=== PATIENT | female | born 1980 | race Caucasian/White ===

== ENCOUNTER 2016-11-27 19:43 | Emergency (ER) | payer OTHER ==
--- NOTE | 2016-11-27 20:48 | ED ORDER SUMMARY ---
..... Patient: KEL HAGAN OrderSheet [facility] VisitID: [id number] [address] [place] [address] 36y, F Registration Date/Time: 11/27/2016 ORDER SHEET Weight: 81.6 kg (stated) Allergies: No Known Drug Allergy GENERAL ORDERS: CBC w Diff Urgent (20:03 11/27/2016 HBivens A.R.N.P.) (Ack 20:06 SRedmond) (20:14 EInderbitzen R.N.) CMP Urgent (20:03 11/27/2016 HBivens A.R.N.P.) (Ack 20:06 SRedmond) (20:14 EInderbitzen R.N.) D-Dimer Urgent (20:03 11/27/2016 HBivens A.R.N.P.) (Ack 20:06 SRedmond) (20:14 EInderbitzen R.N.) MEDICATION ORDERS: IV FLUIDS: IV Saline Lock (20:03 11/27/2016 HBivens A.R.N.P.) (20:14 EInderbitzen R.N.) ORDER SHEET NOTES: [Electronically signed by Hemalatha Sinclair R.N. (20:58 11/27/2016)] [Electronically signed by Kiara Glez A.R.N.P. (22:58 11/27/2016)] [Electronically locked/signed by Heamlatha Sinclair R.N. (20:58 11/27/2016)]
--- NOTE | 2016-11-27 20:48 | ED ORDER SUMMARY ---
..... Patient: KEL HAGAN OrderSheet [facility] VisitID: [id number] [address] [place] [address] 36y, F Registration Date/Time: 11/27/2016 ORDER SHEET Weight: 81.6 kg (stated) Allergies: No Known Drug Allergy GENERAL ORDERS: CBC w Diff Urgent (20:03 11/27/2016 HBivens A.R.N.P.) (Ack 20:06 SRedmond) (20:14 EInderbitzen R.N.) CMP Urgent (20:03 11/27/2016 HBivens A.R.N.P.) (Ack 20:06 SRedmond) (20:14 EInderbitzen R.N.) D-Dimer Urgent (20:03 11/27/2016 HBivens A.R.N.P.) (Ack 20:06 SRedmond) (20:14 EInderbitzen R.N.) MEDICATION ORDERS: IV FLUIDS: IV Saline Lock (20:03 11/27/2016 HBivens A.R.N.P.) (20:14 EInderbitzen R.N.) ORDER SHEET NOTES: [Electronically signed by Hemalatha Sinclair R.N. (20:58 11/27/2016)] [Electronically signed by Kiara Glez A.R.N.P. (22:58 11/27/2016)] [Electronically locked/signed by Hemalatha Sinclair R.N. (20:58 11/27/2016)]
--- NOTE | 2016-11-27 20:48 | ED NURSING NOTES ---
Clinical Report - Nurses [facility] [address] [place] [address] 11/27/2016 19:43 Patient: KEL HAGAN TRIAGE Triage time 19:48 Nov 27 2016. Acuity: LEVEL 4. Chief Complaint: (swelling in legs). 19:48 11/27/16. SEPSIS SCREEN: Sepsis Screen. Negative (no infection suspected/documented). CRISTINA COMA SCORE: [place] Coma Scale: 15- eyes open spontaneously (4); best verbal response- oriented x 4 (5); best motor response- obeys commands (6). --19:55 Hemalatha Sinclair R.N. 19:48 11/27/16. BP: 98/63. HR: 100. RR: 18. O2 saturation: 100%. Temp: 98.2 F. Pain level now 310. --19:55 Hemalatha Sinclair R.N. Weight: 81.6 kg stated. Height/Length: 67 inches Per Patient. BMI: 28.2. --19:47 Hemalatha Sinclair R.N. Medications ALPRAZolam Oral. Methadone HCl Oral. PROzac Oral. --19:49 Hemalatha Sinclair R.N. Medication/allergy information source: the patient. --19:55 Hemalatha Sinclair R.N. Allergies No Known Drug Allergy. --19:49 Hemalatha Sinclair R.N. History Arrived by private vehicle. Historian: patient. Accompanied by family. This started just prior to arrival. Onset. (90 minutes ago). ( acute onset swelling to both legs. no long car trips or airplane trips, nothing out of the norm. states skin is painful and itchy.). No cough or difficulty breathing. 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 PAST MEDICAL HX: Last normal menstrual period now. Has not received seasonal influenza immunization. SOCIAL HX: Smoker- current status unknown (vapes). No alcohol use or drug use. No infectious disease exposure. ABUSE ASSESSMENT: No report of abuse. SELF HARM ASSESSMENT: A self harm assessment was performed. The patient answered "no" to the question "Have you recently felt down, depressed, or hopeless?", "Have you noticed less interest or pleasure in doing things?", "Do you have thoughts of harming or killing yourself?", "Are you here because you tried to hurt yourself?", "Have you ever tried to hurt yourself before today?", "Have you recently had thoughts about harming or killing others?" and "Do you have any dangerous items in your possession?". NUTRITIONAL RISK ASSESSMENT: The nutritional risk assessment revealed no deficiencies. FUNCTIONAL ASSESSMENT: Functional assessment: no impairments noted. LEARNING NEEDS ASSESSMENT: The learning needs assessment revealed no barriers. SKIN INTEGRITY ASSESSMENT: Skin integrity risk assessment completed. No skin integrity risk identified. --19:55 Hemalatha Sinclair R.N. PROBLEMS: Former iv drug user. Abscess Check. Abscess. Laceration. Tendon Laceration. Tetanus Status. Anxiety Reaction. --19:49 Hemalatha Sinclair R.N. ADDITIONAL SURGERIES: Hand. --19:49 Hemalatha Sinclair R.N. Interventions ID band on patient. --19:55 Hemalatha Sinclair R.N. PHYSICAL ASSESSMENT 19:56 11/27/16. Ambulatory to room. GENERAL / NEURO / PSYCH: Alert. Oriented X 4. HEENT: Pupils equal, round and reactive to light. No facial asymmetry noted. Mucous membranes are pink. RESPIRATORY: Breath sounds within normal limits. CVS: Pulses within normal limits. GI / : Abdomen nontender. EXTREMITIES: Bilateral 3+ non-pitting edema of the lower extremities involving both lower legs. SKIN: Skin intact. Skin is warm and dry. Normal skin turgor. --19:56 Hemalatha Sinclair R.N. NURSING PROGRESS NOTES 19:55 11/27/16. The initial plan of care for this patient includes an assessment with efforts to address the presence of pain. This plan of care was discussed with the patient. Patient gowned. Reassurance given. Patient identifiers checked. Call light placed in reach. Side rails up x 1. Bed placed in lowest position. Brakes of bed on. Patient ready for evaluation. --19:55 Hemalatha Sinclair R.N. 20:10 11/27/2016 Site #1 started via IV in the right antecubital space with an 20g angiocath, with aseptic technique and good blood return; one attempt. Blood drawn: rainbow set. Labeled in the presence of the patient and sent to the lab. Saline lock flushed with 10 mL saline. --20:14 Hemalatha Sinclair R.N. DISPOSITION / DISCHARGE 20:51 11/27/2016 Site #1 removed upon discharge. Pressure dressing and bandage applied. --20:51 Hemalatha Sinclair R.N. 20:51 11/27/16. Condition at departure: improved and stable. The goals identified in the patient's plan of care were met. ( GCS 15). FALL RISK ASSESSMENT: Fall risk assessment completed. No fall risk identified. --20:51 Hemalatha Sinclair R.N. 20:51 11/27/16. BP: 111/72. HR: 90. RR: 18. O2 saturation: 97%. Temp: 98.0 F. Pain level now 2/10. --20:51 Hemalatha Sinclair R.N. 20:58 11/27/16. Departure time: 20:58 Nov 27 2016. No learning barriers present. Discharge instructions provided and reviewed with the patient. Patient verbalized understanding. Written instructions provided in [place]. The patient was discharged home and accompanied by family. She left the Emergency Department ambulatory and via private vehicle. Family member driving. --20:58 Hemalatha Sinclair R.N. Locked/Released at 11/27/2016 20:58 by Hemalatha Sinclair R.N.
--- NOTE | 2016-11-27 20:48 | ED NURSING NOTES ---
Clinical Report - Nurses [facility] [address] [place] [address] 11/27/2016 19:43 Patient: KEL HAGAN TRIAGE Triage time 19:48 Nov 27 2016. Acuity: LEVEL 4. Chief Complaint: (swelling in legs). 19:48 11/27/16. SEPSIS SCREEN: Sepsis Screen. Negative (no infection suspected/documented). CRISTINA COMA SCORE: [place] Coma Scale: 15- eyes open spontaneously (4); best verbal response- oriented x 4 (5); best motor response- obeys commands (6). --19:55 Hemalatha Sinclair R.N. 19:48 11/27/16. BP: 98/63. HR: 100. RR: 18. O2 saturation: 100%. Temp: 98.2 F. Pain level now 310. --19:55 Hemalatha Sinclair R.N. Weight: 81.6 kg stated. Height/Length: 67 inches Per Patient. BMI: 28.2. --19:47 Hemalatha Sicnlair R.N. Medications ALPRAZolam Oral. Methadone HCl Oral. PROzac Oral. --19:49 Hemalatha Sinclair R.N. Medication/allergy information source: the patient. --19:55 Hemalatha Sinclair R.N. Allergies No Known Drug Allergy. --19:49 Hemalatha Sinclair R.N. History Arrived by private vehicle. Historian: patient. Accompanied by family. This started just prior to arrival. Onset. (90 minutes ago). ( acute onset swelling to both legs. no long car trips or airplane trips, nothing out of the norm. states skin is painful and itchy.). No cough or difficulty breathing. 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 PAST MEDICAL HX: Last normal menstrual period now. Has not received seasonal influenza immunization. SOCIAL HX: Smoker- current status unknown (vapes). No alcohol use or drug use. No infectious disease exposure. ABUSE ASSESSMENT: No report of abuse. SELF HARM ASSESSMENT: A self harm assessment was performed. The patient answered "no" to the question "Have you recently felt down, depressed, or hopeless?", "Have you noticed less interest or pleasure in doing things?", "Do you have thoughts of harming or killing yourself?", "Are you here because you tried to hurt yourself?", "Have you ever tried to hurt yourself before today?", "Have you recently had thoughts about harming or killing others?" and "Do you have any dangerous items in your possession?". NUTRITIONAL RISK ASSESSMENT: The nutritional risk assessment revealed no deficiencies. FUNCTIONAL ASSESSMENT: Functional assessment: no impairments noted. LEARNING NEEDS ASSESSMENT: The learning needs assessment revealed no barriers. SKIN INTEGRITY ASSESSMENT: Skin integrity risk assessment completed. No skin integrity risk identified. --19:55 Hemalatha Sinclair R.N. PROBLEMS: Former iv drug user. Abscess Check. Abscess. Laceration. Tendon Laceration. Tetanus Status. Anxiety Reaction. --19:49 Hemalatha Sinclair R.N. ADDITIONAL SURGERIES: Hand. --19:49 Hemalatha Sinclair R.N. Interventions ID band on patient. --19:55 Hemalatha Sinclair R.N. PHYSICAL ASSESSMENT 19:56 11/27/16. Ambulatory to room. GENERAL / NEURO / PSYCH: Alert. Oriented X 4. HEENT: Pupils equal, round and reactive to light. No facial asymmetry noted. Mucous membranes are pink. RESPIRATORY: Breath sounds within normal limits. CVS: Pulses within normal limits. GI / : Abdomen nontender. EXTREMITIES: Bilateral 3+ non-pitting edema of the lower extremities involving both lower legs. SKIN: Skin intact. Skin is warm and dry. Normal skin turgor. --19:56 Hemalatha Sinclair R.N. NURSING PROGRESS NOTES 19:55 11/27/16. The initial plan of care for this patient includes an assessment with efforts to address the presence of pain. This plan of care was discussed with the patient. Patient gowned. Reassurance given. Patient identifiers checked. Call light placed in reach. Side rails up x 1. Bed placed in lowest position. Brakes of bed on. Patient ready for evaluation. --19:55 Hemalatha Sinclair R.N. 20:10 11/27/2016 Site #1 started via IV in the right antecubital space with an 20g angiocath, with aseptic technique and good blood return; one attempt. Blood drawn: rainbow set. Labeled in the presence of the patient and sent to the lab. Saline lock flushed with 10 mL saline. --20:14 Hemalatha Sinclair R.N. DISPOSITION / DISCHARGE 20:51 11/27/2016 Site #1 removed upon discharge. Pressure dressing and bandage applied. --20:51 Hemalatha Sinclair R.N. 20:51 11/27/16. Condition at departure: improved and stable. The goals identified in the patient's plan of care were met. ( GCS 15). FALL RISK ASSESSMENT: Fall risk assessment completed. No fall risk identified. --20:51 Hemalatha Sinclair R.N. 20:51 11/27/16. BP: 111/72. HR: 90. RR: 18. O2 saturation: 97%. Temp: 98.0 F. Pain level now 2/10. --20:51 Hemalatha Sinclair R.N. 20:58 11/27/16. Departure time: 20:58 Nov 27 2016. No learning barriers present. Discharge instructions provided and reviewed with the patient. Patient verbalized understanding. Written instructions provided in [place]. The patient was discharged home and accompanied by family. She left the Emergency Department ambulatory and via private vehicle. Family member driving. --20:58 Hemalatha Sinclair R.N. Locked/Released at 11/27/2016 20:58 by Hemalatha Sinclair R.N.
--- NOTE | 2016-11-27 20:48 | ED CLINICAL REPORT ---
Clinical Report - Physicians/Mid Levels [facility] [address] [place] [address] 11/27/2016 19:43 Patient: KEL HAGAN Time Seen: 19:54; initial patient contact, initial documentation, patient care assumed. Arrived- By private vehicle. Historian- patient. HISTORY OF PRESENT ILLNESS Chief Complaint: LOWER EXTREMITY SWELLING. Not relieved by anything- worsened by standing and walking. Severity is described as being moderate. Quality not described as "pain". No radiation. 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 Symptoms located in the area of the right ankle, right leg, right foot, left leg, left foot and left ankle. The patient has not had redness. She has had new onset of localized mild swelling of the right lower leg, mild swelling of the left lower leg, mild swelling of the right ankle, mild swelling of the left ankle, mild swelling of the right foot and mild swelling of the left foot. No difficulty walking. No bladder dysfunction, bowel dysfunction, sensory loss or motor loss. ( stating that legs feel tight and itchy). Patient denies an injury. Similar symptoms previously: None. Recent medical care: Not recently seen/assessed. REVIEW OF SYSTEMS No chest pain or difficulty breathing. All systems otherwise negative, except as recorded above. PAST HISTORY See nurses notes. ( PROBLEMS: Former iv drug user. Abscess Check. Abscess. Laceration. Tendon Laceration. Tetanus Status. Anxiety Reaction. --19:49 Hemalatha Sinclair, R.N. ADDITIONAL SURGERIES: Hand. --19:49 Hemalatha Sinclair, R.N.). 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 No alcohol use or drug use. No recent travel. Is a local resident. FAMILY HISTORY Negative. ADDITIONAL NOTES The nursing notes have been reviewed with agreement regarding the chief complaint, HPI, ROS, PMH and patient medications and allergies. PHYSICAL EXAM Vital Signs: 11/27/2016 19:48 BP: 98/63. HR: 100. RR: 18. O2 saturation: 100%. Temp: 98.2 F. Have been reviewed as normal and appear to be correct. Appearance: Alert. Oriented X3. No acute distress. Eyes: Pupils equal, round and reactive to light. Eyes normal inspection. Neck: Normal inspection. Neck supple. CVS: Normal heart rate and rhythm. Heart sounds normal. Respiratory: No respiratory distress. Breath sounds normal. Back: Normal inspection. No tenderness. ROM normal. Skin: Skin intact. Skin warm and dry. Normal skin color. Normal skin turgor. Extremities: Lower extremities exhibit normal ROM. Lower extremity edema present. No signs of infection involving the lower extremities. Bilateral mild non-pitting edema of the lower extremities involving both feet, both ankles and both lower legs. No calf tenderness. Extremities otherwise negative. Gait: Normal gait. No limping gait. She was able to bear weight. Pain did not prevent testing gait. Neuro, Vascular and Tendons: No pulse deficit present. Lower extremity capillary refill not prolonged. Neuro: Oriented X 3. No motor deficit. No sensory deficit. LABS, X-RAYS, AND EKG Laboratory Tests: CBC w Diff: (LAURA: 11/27/2016 20:15) ( MsgRcvd 11/27/2016 20:20) Final results Test Result Flag Units (Reference) WHITE BLOOD COUNT 6.2 K/uL (4.5-11.5) RED BLOOD COUNT 3.33 L M/uL (4.00-5.20) HEMOGLOBIN 10.0 L gm/dL (12.0-16.0) HEMATOCRIT 30.3 L % (36.0-46.0) MEAN CELL VOLUME 91 fL (80-100) MEAN CORPUSCULAR HGB 30 pg (26-34) MEAN CORPUSCULAR HGB CONC 33 g/dL (31-37) RED CELL DISTRIBUTION WIDTH 13.7 % (11.6-14.8) PLATELET COUNT 187 K/uL (150-400) NEUTROPHIL % 37.5 L % (50-75) LYMPH % 49.6 H % (25-40) MONO % 5.7 % (3-14) EOSINOPHIL % 6.6 H % (0-4) BASOPHIL % 0.6 % (0-2) [id number]: (LAURA: 11/27/2016 20:15) ( MsgRcvd 11/27/2016 20:39) Final results Test Result Flag Units (Reference) D-DIMER QUANTITATIVE 0.50 ug/mLFEU (0.27-0.52) The primary value of this quantitative assay relates toits negative predictive value (i.e. exclusion) of pulmonaryembolism/deep vein thrombosis/DIC.Elevated levels of d-dimer may also occur with:, age, cancer, inflammation, liver disease,post-op, infection, hematoma, coronary disease, peripheralarteriopathy, bleeding disorders and thrombolytic treatment.Results should be correlated with other clinical andradiological data.Testing Methodology: Latex Immunoassay CMP: (LAURA: 11/27/2016 20:15) ( MsgRcvd 11/27/2016 20:32) Final results Test Result Flag Units (Reference) GLUCOSE 92 mg/dL (70-110) BUN 13 mg/dL (7-18) CREATININE 1.0 mg/dL (0.6-1.3) Estimated GFR >60 mL/min Estimated GFR- >60 mL/min Note: Persistent reduction over 3 months in eGFR<60 mL/min/1.73 m2 defines CKD. Patients with eGFR values>=60 mL/min/1.73 m2 may also have CKD if evidence ofpersistent proteinuria. Additional information may be foundat www.kidney.org. SODIUM 140 mmol/L (136-145) POTASSIUM 3.9 mmol/L (3.5-5.1) CHLORIDE 106 mmol/L (98-107) CARBON DIOXIDE 25 mmol/L (21-32) CALCIUM 8.5 mg/dL (8.5-10.1) TOTAL PROTEIN 7.1 g/dL (6.4-8.2) ALBUMIN 3.5 g/dL (3.3-5.0) BILIRUBIN, TOTAL 0.1 mg/dL (0.0-1.0) ALKALINE PHOSPHATASE 63 U/L (46-116) AST (SGOT) 14 L U/L (15-37) ALT (SGPT) 37 U/L (12-78) . PROGRESS AND PROCEDURES Patient counseled in person regarding the patient's stable condition, test results and diagnosis. 20:42. Differential Diagnosis: I considered rheumatoid arthritis, gout, bursitis, ischemia, deep venous thrombosis and superficial thrombophlebitis as a possible cause of lower extremity pain in this patient. This is a partial list of diagnoses considered. Above considerations are based on history, physical exam and laboratory data. Differential diagnosis was discussed with patient. Disposition: Discharged home in good and improved condition (20:48). Condition: good and stable. CLINICAL IMPRESSION Bilateral pedal edema secondary to unknown cause. INSTRUCTIONS Warnings: GENERAL WARNINGS: Return or contact your physician immediately if your condition worsens or changes unexpectedly, if not improving as expected, or if other problems arise. Specifically return if problem worsens. Follow-up: Follow up with your doctor in about two days as needed. Call for an appointment. Summary of care provided to patient. Understanding of the discharge instructions verbalized by patient. (Electronically signed by Kiara Glez A.R.N.P. 11/27/2016 22:58)
--- NOTE | 2016-11-27 22:58 | ED MED RECONCILIATION SUMMARY ---
Patient: KEL HAGAN Medication Reconciliation Report [facility] VisitID: [id number] [address] [place] [address] 36y, F Registration Date/Time: 11/27/2016 Weight: 81.6 kg Height/Length: 67 in. BMI: 28.2 ALLERGIES: No Known Drug Allergy The patient's Home Medications are listed below: THE FOLLOWING MEDICATIONS NEED TO BE RECONCILED: ALPRAZolam Oral Methadone HCl Oral PROzac Oral The source(s) of the original Home Medication information: patient The following Medications were given to the patient in the Emergency Department: None. The following Medications were prescribed to the patient: None.
--- NOTE | 2016-11-27 22:58 | ED MAR SUMMARY ---
..... Medication Administration Record [facility] [address] [place] [id number] Patient: KEL HAGAN Visit ID: [id number] 36y, F Weight: 81.6 kg Height/Length: 67 in BMI: 28.2 ALLERGIES: No Known Drug Allergy
--- NOTE | 2016-11-27 22:58 | ED MED RECONCILIATION SUMMARY ---
Patient: KEL HAGAN Medication Reconciliation Report [facility] VisitID: [id number] [address] [place] [place] [address] 36y, F Registration Date/Time: 11/27/2016 Weight: 81.6 kg Height/Length: 67 in. BMI: 28.2 ALLERGIES: No Known Drug Allergy The patient's Home Medications are listed below: THE FOLLOWING MEDICATIONS NEED TO BE RECONCILED: ALPRAZolam Oral Methadone HCl Oral PROzac Oral The source(s) of the original Home Medication information: patient The following Medications were given to the patient in the Emergency Department: None. The following Medications were prescribed to the patient: None.
--- NOTE | 2016-11-27 22:58 | ED DISCHARGE INSTRUCTIONS ---
Patient: KEL HAGNA General Instructions [facility] VisitID: [id number] [place] [address] 36y, F Registration Date/Time: 11/27/2016 Bilateral pedal edema secondary to unknown cause. INSTRUCTIONS Warnings: GENERAL WARNINGS: Return or contact your physician immediately if your condition worsens or changes unexpectedly, if not improving as expected, or if other problems arise. Specifically return if problem worsens. Follow-up: Follow up with your doctor in about two days as needed. Call for an appointment. Summary of care provided to patient. Understanding of the discharge instructions verbalized by patient. ADDITIONAL INFORMATION Leg Swelling [Bilateral] Swelling of the feet, ankles and legs is called "Edema." It is due to excess fluid collecting in the tissues. Because of gravity, excess fluid in the body settles in the lowest part. This is why the legs and feet are most affected. Some of the causes for edema include: Disease of the heart (congestive heart failure or "CHF") Prolonged standing or sitting (with the legs in the down position) Infection of the feet or legs Venous Insufficiency (congestion of blood in the veins of the legs) Varicose veins (dilated veins of the lower leg) Garters, or clothing that constricts your legs. (These will cause venous congestion by restricting blood flow.) Some medicines (hormones such as control pills; some blood pressure medicines, such as calcium channel blockers; steroids; some antidepressants such as MAO inhibitors and tricyclics.) Menstrual periods with fluid retention Renal insufficiency (a form of kidney disease) Liver failure (Some swelling is normal, but a sudden increase in leg swelling or weight gain can be a sign of a dangerous complication of ). Medical treatment will depend on the cause of your swelling. Diuretics (water pills) may be prescribed to remove excess fluid. Home Care: Do not wear garments that constrict your legs (such as garters). Elevate your legs while lying or sitting. If infection, injury or recent surgery is the cause for your swelling, stay off your legs as much as possible until symptoms improve. 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 Take breaks and walk about every few hours. Brisk walking is a good exercise and helps circulate the congested blood from your leg. Talk to your doctor about the use of support stockings to prevent daytime leg swelling. If your doctor says that heart disease is the cause of your leg swelling, follow a low-salt diet to prevent excess fluid retention. Follow Up with your doctor or as advised by our staff. Get Prompt Medical Attention if any of the following occur: New or worsening shortness of breath or chest pain Increasing swelling in both legs or ankles Swelling of the abdomen Redness, warmth or swelling in one leg Fever of 100.4F (38C) or higher, or as directed by your healthcare provider Yellow color to the skin or eyes Rapid, unexplained weight gain You have been given the following additional information: Peripheral Edema, Bilateral (Electronically signed by Kiara Glez A.R.N.P. 11/27/2016 22:58)
--- NOTE | 2016-11-27 22:58 | ED MAR SUMMARY ---
..... Medication Administration Record [facility] [address] [place], [place] [id number] Patient: KEL HAGAN Visit ID: [id number] 36y, F Weight: 81.6 kg Height/Length: 67 in BMI: 28.2 ALLERGIES: No Known Drug Allergy
--- NOTE | 2016-11-27 22:58 | ED DISCHARGE INSTRUCTIONS ---
Patient: KEL HAGAN General Instructions [facility] VisitID: [id number] [place] [address] 36y, F Registration Date/Time: 11/27/2016 Bilateral pedal edema secondary to unknown cause. INSTRUCTIONS Warnings: GENERAL WARNINGS: Return or contact your physician immediately if your condition worsens or changes unexpectedly, if not improving as expected, or if other problems arise. Specifically return if problem worsens. Follow-up: Follow up with your doctor in about two days as needed. Call for an appointment. Summary of care provided to patient. Understanding of the discharge instructions verbalized by patient. ADDITIONAL INFORMATION Leg Swelling [Bilateral] Swelling of the feet, ankles and legs is called "Edema." It is due to excess fluid collecting in the tissues. Because of gravity, excess fluid in the body settles in the lowest part. This is why the legs and feet are most affected. Some of the causes for edema include: Disease of the heart (congestive heart failure or "CHF") Prolonged standing or sitting (with the legs in the down position) Infection of the feet or legs Venous Insufficiency (congestion of blood in the veins of the legs) Varicose veins (dilated veins of the lower leg) Garters, or clothing that constricts your legs. (These will cause venous congestion by restricting blood flow.) Some medicines (hormones such as control pills; some blood pressure medicines, such as calcium channel blockers; steroids; some antidepressants such as MAO inhibitors and tricyclics.) Menstrual periods with fluid retention Renal insufficiency (a form of kidney disease) Liver failure (Some swelling is normal, but a sudden increase in leg swelling or weight gain can be a sign of a dangerous complication of ). Medical treatment will depend on the cause of your swelling. Diuretics (water pills) may be prescribed to remove excess fluid. Home Care: Do not wear garments that constrict your legs (such as garters). Elevate your legs while lying or sitting. If infection, injury or recent surgery is the cause for your swelling, stay off your legs as much as possible until symptoms improve. If your doctor says that your leg swelling is caused by venous insufficiency or varicose veins, do not sit or machine stripper cutter one place for long periods of time. Take breaks and walk about every few hours. Brisk walking is a good exercise and helps circulate the congested blood from your leg. Talk to your doctor about the use of support stockings to prevent daytime leg swelling. If your doctor says that heart disease is the cause of your leg swelling, follow a low-salt diet to prevent excess fluid retention. Follow Up with your doctor or as advised by our staff. Get Prompt Medical Attention if any of the following occur: New or worsening shortness of breath or chest pain Increasing swelling in both legs or ankles Swelling of the abdomen Redness, warmth or swelling in one leg Fever of 100.4F (38C) or higher, or as directed by your healthcare provider Yellow color to the skin or eyes Rapid, unexplained weight gain You have been given the following additional information: Peripheral Edema, Bilateral (Electronically signed by Kiara Glez A.R.N.P. 11/27/2016 22:58)
== END 2016-11-27 20:58 | disposition home or self-care (01) ==
LOC: ED SRH 19:43
DX: R60.0 Localized edema (principal); Z79.891 Long term (current) use of opiate analgesic; Z79.899 Other long term (current) drug therapy
CPT/HCPCS: 90100; 91556; 95059